=== PATIENT | male | born 1985 | race Caucasian/White ===

== ENCOUNTER 2024-03-29 00:22 | Day surgery (SDC) | payer OTHER, SELFPAY ==
[2024-03-11 11:33] VITALS: BMI 33.5
[2024-03-29 12:24] VITALS: BP 133/96; PULSE 89; RESP 18; TEMP 36.4; O2SAT 99
[2024-03-29 12:39] LABS: Glucose Point of Care 151 mg/dl (65-105)
[2024-03-29] MEDS: LACTATED RINGERS 1,000 ML 150 ML IV CONT (12:41)
--- NOTE | 2024-03-29 12:44 | P.PNAN_ITS ---
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 Patient Data Age: 38 Gender: M Height: 1.73 m Weight: 90.7 kg Last Vital Signs Temp 36.4 C 03/29/24 12:24 Pulse 89 03/29/24 12:24 Resp 18 03/29/24 12:24 BP 133/96 H 03/29/24 12:24 Pulse Ox 99 03/29/24 12:24 O2 Del Method Room Air 03/29/24 12:24 Allergies Allergy/AdvReac Type Severity Reaction Status Date / Time No Known Allergies Allergy Verified 03/29/24 12:23 Home Medications Medication Instructions Recorded Confirmed Type pioglitazone 30 mg tablet 30 mg PO DAILY 03/11/24 03/11/24 History Laboratory Tests 03/29/24 12:35 POC Capillary Glucose 151 H mg/dl (65-105) Patient hx anesthesia problems: none Family hx anesthesia problems: none Results Review: All pre-operative results and documents have been reviewed as part of the pre- operative evaluation. [facility] Social History Social History Living arrangements: with family Spiritual care concerns: No Anes - Eval Final PreProcedure Day of Procedure 03/29/24 12:44 Patient weight: overweight Heart: regular rate and rhythm Lungs: clear to auscultation Airway: Mallampati scale class II Neurological: alert and oriented Last oral intake: >/= 8 hours ASA classification: II Emergent: no Anesthetic plan: proceed Anesthesia type and monitoring: general GIVS and standard monitoring Results Review: All pre-operative results and documents have been reviewed as part of the pre- operative evaluation. Informed Consent: The patient's anesthetic plan and its attendant risks and benefits were discussed with the patient/family/POA. Questions were solicited and answers provided to the satisfaction of the patient/family/POA.
--- NOTE | 2024-03-29 12:50 | PM.HPGS ---
History of Present Illness History of Present Illness Consent: Risks, benefits, and alternatives have been discussed and questions answered. Patient agrees to proceed with procedure. 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 Narrative: Geovany Mireles is a 38 year old male here for colon screening, last one 2017. He denies diarrhea or h/o colitis (records from other hospital states h/o colitis)- he is not taking any meds, he says that had partial colon resection for dark spot . Review of Systems Review of Systems: All systems reviewed & are unremarkable except as noted in HPI and below PMFSH Past Medical History Medical History (Updated 03/29/24 @ 12:51 by Familia Hunter MD) Colon cancer screening Social History Social History Living arrangements: with family Spiritual care concerns: No Meds Home Medications and Allergies Home Medications Medication Instructions Recorded Confirmed Type pioglitazone 30 mg tablet 30 mg PO DAILY 03/11/24 03/11/24 History Allergies Allergy/AdvReac Type Severity Reaction Status Date / Time No Known Allergies Allergy Verified 03/29/24 12:23 Vital Signs Vital Signs - 24 hr 03/29/24 12:24 Temperature 97.6 F Pulse Rate 89 Respiratory Rate 18 Blood Pressure 133/96 H Pulse Oximetry 99 Oxygen Delivery Room Air Exam Const: General: comfortable and no acute distress HENMT: Face/Nose/Sinus: Normal nares present Eyes: General: appearance normal, both eyes and all related structures Neck: Neck: no JVD Resp: Auscultation: clear to auscultation bilaterally Cardio: Rate: regular rate Rhythm: regular rhythm GI: Inspection: non-distended GI Palp: Yes Soft to palpation Skin: General skin exam: normal color Neuro: General: gait normal Speech: normal speech Extrem: General: normal to inspection Psych: Mental Status: mental status grossly normal Assessment and Plan Assessment and plan (1) Colon cancer screening: Code(s): Z12.11 - Encounter for screening for malignant neoplasm of colon Status: Acute Assessment and Plan: colonoscopy
[2024-03-29 13:07] VITALS: BP 108/66; PULSE 88; RESP 15; O2SAT 95
[2024-03-29 13:17] VITALS: BP 117/76; PULSE 99; RESP 20; O2SAT 96
[2024-03-29 13:27] VITALS: BP 123/85; PULSE 85; RESP 16; O2SAT 98
== END 2024-03-29 13:45 | disposition home or self-care (01) ==
PROVIDERS: Visit Provider Internal Medicine Gastroenterology
PROC: 0DJD8ZZ Inspection of Lower Intestinal Tract, Via Natural or Artificial Opening Endoscopic (ICD-10-PCS; CPT 45378; principal; 2024-03-29 13:30)
DX: Z12.11 Encounter for screening for malignant neoplasm of colon (principal); D12.5 Benign neoplasm of sigmoid colon; K52.89 Other specified noninfective gastroenteritis and colitis; K64.8 Other hemorrhoids; Z90.49 Acquired absence of other specified parts of digestive tract
CPT/HCPCS: 45385; 45380; 82948; 88305; J2704; J7120